=== PATIENT | female | born 1990 | race Caucasian/White ===

== ENCOUNTER 2021-04-04 02:01 | Emergency (ER) | payer BC ==
--- OUTSIDE RECORDS SUMMARY | 2021-04-04 02:07 | XMS REPORT | Continuity of Care Document ---
:1990 Author Organization [facility] t Address [address] [place] [address] Care Team Providers Name Role Phone Manjinder Lou RN Attending Clinician Unavailable AUGUSTA Attending Clinician Unavailable JEHTRO Attending Clinician Unavailable JETHRO Attending Clinician Unavailable Jethro FRIAS Attending Clinician Problems This patient has no known problems. Allergies, Adverse Reactions, Alerts Allergy Allergy Status Severity Reaction(s) Onset Inactive Treating Comm ents Source Name Type Date Date Clinician HYDROCOD DRUG Active Unknown-Cmnt 2019-0 Un etienne ONE INGREDI 4-24 ity of 00:00: [address] NICKEL DRUG Active Unknown-Cmnt 2020-0 Univ ers INGREDI 4-24 ity of 00:00: [address] NO KNOWN Drug Active Univers ALLERGIE Class ity of [facility] Medications This patient has no known medications. Procedures This patient has no known procedures. Encounters Start End Encounter Admission Attending Care Care Encounter Source Date/Time Date/Time Type Type Clinicians Facility Department ID 2019-12-12 2019-12-12 Nurse Arpita HERRING [id number] 00:00:00 00:00:00 Triage Suni rm [id number] [facility] [id number] 2019 2019 Outpatient [facility] [id number] Univers 14:20:00 14:20:00 [id number] ity [facility] 2019 2019 Outpatient ALTON BARTON [facility] [id number] Univers 14:20:00 14:20:00 ity [facility] 2019-10-31 2019-10-31 Outpatient R WILLIAM MORELOS [facility] [id number] Univers 13:00:00 13:00:00 WILLIAM MORELOS [id number] i ty of [facility] 2019-08-21 2019-08-21 Telephone Jethro [facility] [id number] 00:00:00 00:00:00 [place] [id number] Yefri [id number] [id number] [address] 2019-07-26 2019-07-26 Outpatient R WILLIAM MORELOS [facility] [id number] Univers 15:00:00 15:00:00 WILLIAM MORELOS i ty of [facility] Results This patient has no known results.
--- NOTE | 2021-04-04 02:53 | EDPHYS ---
Physician Documentation [facility] Name: Varsha Franco Age: 30 yrs Sex: Female : 1990 Arrival Date: 04/04/2021 Time: 02:11 Bed DIS4 Private MD: ED Physician Saurabh Self HPI: 04/04 02:52 This 30 yrs old Female presents to ER via Unassigned with complaints of [place] in ear, jr8 Ear Pain. 02:55 This is a 30-year-old female that presented to the emergency room with continued right jr8 ear pain. Stated that she thought the ear wick was still in there. Stated that she continues to have pain despite being on amoxicillin p.o. and eardrops. Wanted to make sure that she still did not have the ear wick in her ear.. 02:55 Associated signs and symptoms: The patient has no apparent associated signs or jr8 symptoms. Severity of symptoms: At their worst the symptoms were mild in the emergency department the symptoms are unchanged. The patient has not experienced similar symptoms in the past. The patient has been recently seen by a physician:. 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 - Social history:: Smoking status: unknown. ROS: 02:55 Constitutional: Negative for fever, chills, and weight loss. jr8 02:55 ENT: Positive for drainage from ear(s), ear pain. 02:55 All other systems are negative. Exam: 02:55 Eyes: Pupils equal round and reactive to light, extra-ocular motions intact. Lids and jr8 lashes normal. Conjunctiva and sclera are non-icteric and not injected. Cornea within normal limits. Periorbital areas with no swelling, redness, or edema. Neck: Trachea midline, no thyromegaly or masses palpated, and no cervical lymphadenopathy. Supple, full range of motion without nuchal rigidity, or vertebral point tenderness. No Meningismus. Cardiovascular: Regular rate and rhythm with a normal S1 and S2. No gallops, murmurs, or rubs. Normal PMI, no JVD. No pulse deficits. Respiratory: Lungs have equal breath sounds bilaterally, clear to auscultation and percussion. No rales, rhonchi or wheezes noted. No increased work of breathing, no retractions or nasal flaring. Skin: Warm, dry with normal turgor. Normal color with no rashes, no lesions, and no evidence of cellulitis. MS/ Extremity: Pulses equal, no cyanosis. Neurovascular intact. Full, normal range of motion. Neuro: Awake and alert, GCS 15, oriented to person, place, time, and situation. Cranial nerves II-XII grossly intact. Motor strength 5/5 in all extremities. Sensory grossly intact. 02:55 ENT: External ear(s): are unremarkable, Ear canal(s): foreign body, is not appreciated, purulent discharge, that is moderate, in the right canal, swelling, that is moderate, of the right canal, TM's: not visable, because of discharge, Swelling, Examination of the other ear shows no obvious abnormality, Nose: is normal, Mouth: is normal, Posterior pharynx: is normal. Vital Signs: 03:01 BP 137 / 94; Pulse 61; Resp 16; Temp 97.8; Pulse Ox 100% ; lt3 MDM: 02:52 Patient medically screened. [facility] 02:52 Data reviewed: vital signs, nurses notes, and as a result, I will discharge patient. [facility] Data interpreted: Pulse oximetry: on room air is 98 %. Interpretation: normal. Counseling: I had a detailed discussion with the patient and/or guardian regarding: the historical points, exam findings, and any diagnostic results supporting the discharge/admit diagnosis, the need for outpatient follow up, an ENT specialist, to return to the emergency department if symptoms worsen or persist or if there are any questions or concerns that arise at home. 02:54 ED course: Patient has continued swelling to the right external auditory canal despite jr8 being on Amoxil and drops. We will switch her to Cipro p.o. as some of this can be Pseudomonas related. Patient will continue to follow-up with otolaryngology.. Administered Medications: 03:15 Drug: Ketorolac 15 mg Route: IM; Site: right gluteus; bb 03:36 Follow up: Response: Medication administered at discharge. christine Disposition: 06:20 Co-signature as Attending Physician, Saurabh Self MD. mh7 Disposition Summary: 04/04/21 02:53 Discharge Ordered Location: Home jr8 Problem: new jr8 Symptoms: have improved jr8 Condition: Stable jr8 Diagnosis - Unspecified otitis externa, right ear jr8 Followup: jr8 - With: Private Physician - When: 2 - 3 days - Reason: Recheck today's complaints, Continuance of care, Re-evaluation by your physician Discharge Instructions: - Discharge Summary Sheet jr8 - Otitis Externa jr8 Forms: - Medication Reconciliation Form jr8 - Thank You Letter jr8 - Antibiotic Education jr8 - Prescription Opioid Use jr8 Prescriptions: - Cipro 500 mg Oral Tablet - take 1 tablet by ORAL route every 12 hours for 7 days; 14 tablet; Refills: 0, jr8 Product Selection Permitted Signatures: Patricia Lancaster RN RN Bo Nuñez PA PA 8 Saurabh Self MD MD mh7
[2021-04-04] MEDS ORDERED: KETOROLAC 30 MG/ML INJ ONE (03:08)
--- NOTE | 2021-04-04 03:38 | ER ---
Nurse's Notes [facility] Name: Varsha Franco Age: 30 yrs Sex: Female : 1990 Arrival Date: 04/04/2021 Time: 02:11 Bed DIS4 Private MD: Diagnosis: Unspecified otitis externa, right ear Presentation: 04/04 02:37 Chief complaint: Patient states: she has an ear wick in her right ear for an infection bb and it is hurting. Coronavirus screen: At this time, the client does not indicate any symptoms associated with coronavirus-19. Ebola Screen: No symptoms or risks identified at this time. Initial Sepsis Screen: Does the patient meet any 2 criteria? No. Patient's initial sepsis screen is negative. Does the patient have a suspected source of infection? No. Patient's initial sepsis screen is negative. Risk Assessment: Do you want to hurt yourself or someone else? Patient reports no desire to harm self or others. Onset of symptoms is unknown. 02:37 Method Of Arrival: Ambulatory bb 02:37 Acuity: MARCELO 5 bb Triage Assessment: 02:40 General: Appears in no apparent distress. Behavior is calm, cooperative. Pain: bb Complains of pain in right ear. EENT: Reports pain in right ear. Neuro: Level of Consciousness is awake, alert, obeys commands, Oriented to person, place, time, situation. Cardiovascular: Capillary refill < 3 seconds Patient's skin is warm and dry. Respiratory: Respiratory effort is even, unlabored, Respiratory pattern is regular. GI: No signs and/or symptoms were reported involving the gastrointestinal system. Derm: Skin is pink, warm \T\ dry. Musculoskeletal: Circulation, motion, and sensation intact. 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 - Social history:: Smoking status: unknown. Screenin:36 Abuse screen: Denies threats or abuse. Nutritional screening: No deficits noted. bb Tuberculosis screening: No symptoms or risk factors identified. Fall Risk None identified. Assessment: 03:36 Reassessment: No changes from previously documented assessment. Patient is alert, bb oriented x 3, equal unlabored respirations, skin warm/dry/pink. pt verbalized understanding of and agrees to plan of care discharge instructions given pt ambulated with steady gait to exit. Vital Signs: 03:01 BP 137 / 94; Pulse 61; Resp 16; Temp 97.8; Pulse Ox 100% ; lt3 ED Course: 02:11 Patient arrived in ED. wm 02:40 Arm band placed on Patient placed in diagnostic chair. bb 02:52 Bo Jensen PA is PHCP. jrJeyson 02:52 Saurabh Self MD is Attending Physician. jr8 03:32 Patricia Lancasetr, RN is Primary Nurse. bb 03:33 Triage completed. bb 03:36 Patient has correct armband on for positive identification. bb 03:36 No provider procedures requiring assistance completed. Patient did not have IV access bb during this emergency room visit. Administered Medications: 03:15 Drug: Ketorolac 15 mg Route: IM; Site: right gluteus; bb 03:36 Follow up: Response: Medication administered at discharge. bb Outcome: 02:53 Discharge ordered by . jr8 03:36 Discharged to home ambulatory. bb 03:36 Condition: stable 03:36 Discharge instructions given to patient, Instructed on discharge instructions, follow up and referral plans. medication usage, Demonstrated understanding of instructions, follow-up care, medications, Prescriptions given X 1. 03:38 Patient left the ED. bb Signatures: Patricia Lancaster, RN RN bb Bo Jensen PA PA jrAyanna Chapman Gillespie, Laura lt3
[2021-04-04 03:45] VITALS: BP 137/94; TEMP 97.8; O2SAT 100
== END 2021-04-04 03:38 | disposition home or self-care (01) ==
LOC: ER 02:01
DX: H60.91 Unspecified otitis externa, right ear (principal); F41.9 Anxiety disorder, unspecified; F90.9 Attention-deficit hyperactivity disorder, unspecified type
CPT/HCPCS: 96372; 99283

== ENCOUNTER 2022-03-01 23:01 | Emergency (ER) | payer BC, SELFPAY ==
--- OUTSIDE RECORDS SUMMARY | 2022-03-01 23:04 | XMS REPORT | Continuity of Care Document ---
:1990 Author Organization [facility] t Address [address] [place] [address] Care Team Providers Name Role Phone Pcp, Patient Does Not Have A Primary Care Physician +[id number] Andrew Nye NP Attending Clinician ANDREW NYE Attending Clinician Unavailable ANTOINE HUERTA Attending Clinician Unavailable Doctor Unassigned, [place] Attending Clinician Unavailable Suni Lou RN Attending Clinician Unavailable ALTON DERAS Attending Clinician Unavailable Willow Morelos DO Attending Clinician WILLOW MORELOS Attending Clinician Unavailable WILLOW MORELOS Attending Clinician Unavailable Problems Condition Condition Condition Status Onset Resolution Last Treating Co mments Source Name Details Category Date Date Treatment Clinician Date Adult ADHD Adult ADHD Disease Active 2021-04 U nivers 08 ity of 00:00: [place] 00 Medical Branch Oral Oral Disease Active 2021-04 [facility] it y of ion ion 00:00: [place] initiation initiation 00 [place] dical Branch History of History of Disease Active 2021-04 U nivers anxiety anxiety 08 ity of 00:00: [place] 00 Medical [place] No known No known Disease Unive rs active active ity of problems problems [facility] Allergies, Adverse Reactions, Alerts Allergy Allergy Status Severity Reaction(s) Onset Inactive Treating Comm ents Source Name Type Date Date Clinician Hydrocod Propensi Active Unknown - Uni vers one ty to See comments 4-24 ity of adverse 00:00: [place] reaction 00 [facility] s [place] Nickel Propensi Active Unknown - 0 Unive rs ty to See comments 4-24 ity of adverse 00:00: [place] reaction 00 Medical s Branch HYDROCOD DRUG Active Unknown-Cmnt 2019-0 Un etienne ONE INGREDI - ity of 00:00: Medical Branch NICKEL DRUG Active Unknown-Cmnt 2019-0 Univ ers INGREDI 07-25 ity of 00:00: [place] [facility] NO KNOWN Drug Active Univers ALLERGIE Class ity of S [facility] Social History Social Habit Start Date Stop Date Quantity Comments Source History of Cigarette Smoker Universi ty of tobacco use [facility] Exposure to 2022-01-29 2022-02-08 Not sure [facility] SARS-CoV-2 00:00:00 10:55:00 [facility] (event) [place] Tobacco use and 2022-02-08 2022-02-08 Smokeless tobacco Un iversity of exposure 00:00:00 00:00:00 non-user [facility] Alcohol intake 2022-02-08 2022-02-08 Ex-drinker [facility] 00:00:00 00:00:00 (finding) [facility] Sex Ass[birth year] Universit y of 00:00:00 00:00:00 [facility] Smoking Status Start Date Stop Date Source Ex-smoker 2022-02-08 00:00:00 2022-02-08 00:00:00 [facility] of [facility] Medications Ordered Filled Start Stop Current Ordering Indication Dosage Frequency Signature Comments Components Source Medication Medication Date Date Medication? Clinician (SIG) Name Name norgestimat 2021-04 Yes [id number] 1{tbl} Take 1 Univers e-ethinyl 1-08 tablet by ity o f estradioL [place] 0.[place]0.215[place] 00 the Medical 0.25 mg-25 morning. Branc h mcg tablet norgestimat 2021-04 Yes [id number] 1{tbl} Take 1 Univers e-ethinyl 1-08 tablet by ity o f estradioL [place] 0.18/0.215/ 00 the Medical 0.25 mg-25 morning. Branc h mcg tablet norgestimat 2021-04 Yes [id number] 1{tbl} Take 1 Univers e-ethinyl 1-08 tablet by ity o f estradioL 00:[place] 0.18/0.215/ 00 the Medical 0.25 mg-25 morning. Branc h mcg tablet dextroamphe 2021-04 Yes TAKE [facility] tamine-amph 0-01 ONE-HALF ity of etamine 30 00:00: (04/04) [place] mg tablet 00 TABLET(S) Medic al BY MOUTH Branch TWICE A DAY. TAKE 2ND DOSE AT NOON. dextroamphe 2021-04 Yes TAKE [facility] tamine-amph 0-01 ONE-HALF ity of etamine 30 00:00: (04/04) [place] mg tablet 00 TABLET(S) Medic al BY MOUTH Branch TWICE A DAY. TAKE 2ND DOSE AT NOON. dextroamphe 2021-04 Yes TAKE [facility] tamine-amph 0-01 ONE-HALF ity of etamine 30 00:00: (04/04) [place] mg tablet 00 TABLET(S) Medic al BY MOUTH Branch TWICE A DAY. TAKE 2ND DOSE AT NOON. budesonide- Yes INHALE TWO Univers formoteroL 9-23 (2) PUFFS ity of 160-4.5 00:00: BY MOUTH [place] mcg/actuati 00 DAILY. Medica l on inhaler Branch budesonide- Yes INHALE TWO Univers formoteroL 9-23 (2) PUFFS ity of 160-4.5 00:00: BY MOUTH [place] mcg/actuati 00 DAILY. Medica l on inhaler Branch budesonide- Yes INHALE TWO Univers formoteroL 9-23 (2) PUFFS ity of 160-4.5 00:00: BY MOUTH [place] mcg/actuati 00 DAILY. Medica l on inhaler Branch ALPRAZolam Yes TAKE ONE Uni vers 0.25 mg 9-22 (1) ity of tablet 00:00: TABLET(S) [place] 00 BY MOUTH Medical TWICE A Branch DAY NEEDED. ARIPiprazol Yes 2mg Take 2 mg U nivers e 2 mg 9-22 by mouth ity of tablet 00:00: in the morning. Medical Branch ALPRAZolam Yes TAKE ONE Uni vers 0.25 mg 9-22 (1) ity of tablet 00:00: TABLET(S) [place] 00 BY MOUTH Medical TWICE A Branch DAY NEEDED. ARIPiprazol 2021-0 Yes 2mg Take 2 mg U nivers e 2 mg 9-22 by mouth ity of tablet 00:00: in the [place] morning. Medical Branch ALPRAZolam Yes TAKE ONE Uni vers 0.25 mg 9-22 (1) ity of tablet 00:00: TABLET(S) [place] BY MOUTH Medical TWICE A Branch DAY NEEDED. ARIPiprazol 2021-0 Yes 2mg Take 2 mg U nivers e 2 mg 9-22 by mouth ity of tablet 00:00: in the [place] morning. Medical Branch tiotropium 2019-0 Yes [id number] 18ug Inhale 1 Univers 18 mcg 8-26 capsule ity of inhalation 00:00: daily. [place] [facility] levalbutero 2019-0 Yes [id number] 2{puff} Inhale 2 Univers l 45 8-26 Puffs ity of mcg/actuati 00:00: every 6 [place] as on inhaler 00 (six) Medical hours as Branch needed for Wheezing. fluticasone 2019-0 Yes [id number] 1{puff} Inhale 1 Univers propionate 8-26 Puff every ity of 110 00:00: 12 [place] mcg/actuati 00 (twelve) Medi kelly on inhaler hours. Branch tiotropium 2019-0 Yes [id number] 18ug Inhale 1 Univers 18 mcg 8-26 capsule ity of inhalation 00:00: daily. [place] [address] Medical Branch levalbutero 2019-0 Yes [id number] 2{puff} Inhale 2 Univers l 45 8-26 Puffs ity of mcg/actuati 00:00: every 6 [place] as on inhaler 00 (six) Medical hours as Branch needed for Wheezing. fluticasone 2020-0 Yes [id number] 1{puff} Inhale 1 Univers propionate 8-26 Puff every ity of 110 00:00: 12 [place] mcg/actuati 00 (twelve) Medi kelly on inhaler hours. Branch tiotropium 2019-0 Yes [id number] 18ug Inhale 1 Univers 18 mcg 8-26 capsule ity of inhalation 00:00: daily. [place] [address] Medical Branch levalbutero 2019-0 Yes [id number] 2{puff} Inhale 2 Univers l 45 8-26 Puffs ity of mcg/actuati 00:00: every 6 [place] as on inhaler 00 (six) Medical hours as Branch needed for Wheezing. fluticasone 2019-0 Yes [id number] 1{puff} Inhale 1 Univers propionate 8-26 Puff every ity of 110 00:00: 12 [place] mcg/actuati 00 (twelve) Medi kelly on inhaler hours. Branch tiotropium Yes [id number] 18ug Inhale 1 Univers 18 mcg 8-26 capsule ity of inhalation 00:00: daily. [address] levalbutero 0 Yes [id number] 2{puff} Inhale 2 Univers l 45 8-26 Puffs ity of mcg/actuati 00:00: every 6 [place] as on inhaler 00 (six) Medical hours as Branch needed for Wheezing. fluticasone Yes [id number] 1{puff} Inhale 1 Univers propionate 8-26 Puff every ity of 110 00:00: 12 [place] mcg/actuati 00 (twelve) Medi kelly on inhaler hours. Branch Vital Signs Vital Name Observation Time Observation Value Comments Source Systolic blood 2022-02-08 17:24:00 137 mm[Hg] [facility] Diastolic blood 2022-02-08 17:24:00 85 mm[Hg] [facility] Heart rate 2022-02-08 17:24:00 82 /min [facility] Body temperature 2022-02-08 17:24:00 36.67 Nathaly [facility] Respiratory rate 2022-02-08 17:24:00 18 /min [facility] Body height 2022-02-08 17:24:00 156.2 cm [facility] Body weight 2022-02-08 17:24:00 53.071 kg [facility] BMI 2022-02-08 17:24:00 21.75 kg/m2 [facility] Procedures Procedure Date / Time Performed Performing Clinician Sourrenee e POCT TEST 2022-02-08 00:00:00 Hazel Welch [facility] CONSENT/REFUSAL FOR 2021-10-25 21:29:14 Doctor Unassigned, No Un [facility] DIAGNOSIS AND Name [facility] TREATMENT Encounters Start End Encounter Admission Attending Care Care Encounter Source Date/Time Date/Time Type Type Clinicians Facility Department ID 2022-02-21 2022-02-21 Telephone Prashanth WYDIONNE JEFFERSON [id number] Univers 00:00:00 00:00:00 Christieyajaira CIHNA [id number] it y of WOMEN'S [id number] [facility] [place] [facility] [id number] [address] 2022-02-08 2022-02-08 Outpatient R ANDREW NYE [facility] B [id number] Univers 11:00:00 11:52:[address] [facility] 2022-02-08 2022-02-08 [facility] [id number] Univers 11:00:00 11:52:49 Visit Andrew ATKINSON [id number] it y of WOMEN'S [id number] [facility] [place] [facility] [id number] [address] 2021-10-25 2021-10-25 Outpatient R BRADLEY [facility] [id number] Univers 16:40:00 16:40:00 ANTOINE waiet o f [facility] 2021-10-25 2021-10-25 Orders Doctor NEVAEH [id number] Univers 00:00:00 00:00:00 Only UnassSUSHILA arndt [id number] ity of [place] [facility] [id number] [place] as [id number] [place] [address] Branch 2019-12-12 2019-12-12 Nurse Arpita HERRING [id number] 00:00:00 00:00:00 Triage dSuni [id number] HOSPITAL [id number] 2019 2019 Outpatient R ALTON DERAS [facility] [id number] Univers 14:20:00 14:20:[address] [facility] 2019-08-21 2019-08-21 Telephone Sushil [facility] [id number] 00:00:00 00:00:00 Willow Glover [id number] Yefri [id number] Edward [id number] replaced by [facility] anson5 [facility] 2019-07-26 2019-07-26 Outpatient R WILLOW MORELOS [facility] [id number] [facility] 15:00:00 15:00:00 WILLOW MORELOS i [facility] Results Test Description Test Time Test Comments Results Result Comments Source POCT TEST 2022-02-08 18:41:00 Test Item Value Reference Range Interpretation Comme nts POCT PREG (test code = 1605) Negative On board controls acceptable with C Line (test code = 3574) Yes POCT PREG LOT # (test code = 3575) POCT PREG TEST DATE (test code = 3576) [id number] 18:41:00 Test Item Value Reference Range Interpretation Comments POCT PREG (test code = 1605) Negative On board controls acceptable with C Yes Line (test code = 3574) POCT PREG LOT # (test code = 3575) POCT PREG TEST DATE (test code = 3576) [facility]
--- NOTE | 2022-03-01 23:30 | ER ---
Nurse's Notes [facility] Name: Varsha Franco Age: 31 yrs Sex: Female : 1990 Arrival Date: 03/01/2022 Time: 23:06 Bed IW1 Private MD: Diagnosis: Encounter for examination and observation for unspecified reason Presentation: 03/01 23:13 Chief complaint: Patient states: "I had to Adderall this morning. I had a couple of tw5 beers at the bar and a vodka soda. I head a headache so I got home and took a tramadol rather than a Tylenol. I goggled if that was okay with drinking and I saw that it could cause , so I was worried.". Coronavirus screen: Vaccine status: Patient reports receiving the 2nd dose of the covid vaccine. [employer]. Ebola Screen: Patient negative for fever greater than or equal to 101.5 degrees Fahrenheit, and additional compatible Ebola Virus Disease symptoms Patient denies exposure to infectious person. Patient denies travel to an Ebola-affected area in the 21 days before illness onset. Initial Sepsis Screen: Does the patient meet any 2 criteria? No. Patient's initial sepsis screen is negative. Does the patient have a suspected source of infection? No. Patient's initial sepsis screen is negative. Initial Sepsis Screen: Does the patient meet any 2 criteria?. Risk Assessment: Do you want to hurt yourself or someone else? Patient reports no desire to harm self or others. Onset of symptoms was March 01, 2022. 23:13 Method Of Arrival: Ambulatory tw5 23:13 Acuity: MARCELO 5 tw5 Triage Assessment: 23:18 General: Appears in no apparent distress. Behavior is anxious. Pain: Denies pain. 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 - Social history:: Smoking status: Reported history of juuling and/or vaping. Screenin:33 Abuse screen: Denies threats or abuse. Denies injuries from another. Nutritional tw5 screening: No deficits noted. Tuberculosis screening: No symptoms or risk factors identified. Fall Risk None identified. Assessment: 23:33 Cardiovascular: No deficits noted. tw5 Vital Signs: 23:13 BP 117 / 83; Pulse 71; Resp 18; Temp 98.7; Pulse Ox 97% ; Weight 52.16 kg; Height 5 ft. tw5 2 in. (157.48 cm); Pain 0/10; 23:13 Body Mass Index 21.03 (52.16 kg, 157.48 cm) tw5 ED Course: 23:06 Patient arrived in ED. ja2 23:11 Ney Santana PA is PHCP. cp 23:11 Ney Joe MD is Attending Physician. cp 23:18 Triage completed. tw5 23:18 Arm band placed on. tw5 23:33 No apparent distress. tw5 23:33 Patient has correct armband on for positive identification. tw5 23:33 No provider procedures requiring assistance completed. Patient did not have IV access tw5 during this emergency room visit. Administered Medications: No medications were administered Medication: 23:33 VIS not applicable for this client. tw5 Outcome: 23:29 Discharge ordered by . cp 23:33 Discharged to home ambulatory. tw5 23:33 Condition: good 23:33 Discharge instructions given to patient, Instructed on discharge instructions, follow up and referral plans. Demonstrated understanding of instructions, follow-up care. 23:33 Patient left the ED. tw5 Signatures: Ney Santana PA PA cp Alexander, Jessica ja2 Wood, Tiffany tw5
--- NOTE | 2022-03-01 23:30 | EDPHYS ---
Physician Documentation [facility] Name: Varsha Franco Age: 31 yrs Sex: Female : 1990 Arrival Date: 03/01/2022 Time: 23:06 Bed IW1 Private MD: ED Physician Ney Joe HPI: 03/01 23:24 This 31 yrs old Female presents to ER via Ambulatory with complaints of Breathing cp Difficulty, Dizziness, Headache. 23:24 The patient has shortness of breath at rest. Onset: The symptoms/episode began/occurred cp today. Associated signs and symptoms: Pertinent positives: dizziness, headache, Pertinent negatives: chest pain. Severity of symptoms: in the emergency department the symptoms are unchanged despite home interventions. Patient reports she was out with friend drinking earlier today and went home to go to sleep. Woke up this evening with a headache so she took 1 tramadol tablet for pain. 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 - Social history:: Smoking status: Reported history of juuling and/or vaping. ROS: 23:26 Constitutional: Negative for body aches, chills, fever, poor PO intake. cp 23:26 Cardiovascular: Negative for chest pain, edema, palpitations. 23:26 Respiratory: Positive for shortness of breath, at rest. Negative for cough, wheezing. 23:26 Abdomen/GI: Negative for abdominal pain, vomiting, diarrhea, constipation. 23:26 Neuro: Positive for headache, Negative for altered mental status, dizziness, syncope, weakness. 23:26 All other systems are negative. Exam: 23:26 Head/Face: Normocephalic, atraumatic. cp 23:26 Constitutional: The patient appears in no acute distress, alert, awake, non-diaphoretic, non-toxic, well developed, well nourished. 23:26 Eyes: Periorbital structures: appear normal, Conjunctiva: normal, no exudate, no injection, Sclera: no appreciated abnormality, Lids and lashes: appear normal, bilaterally. 23:26 ENT: External ear(s): are unremarkable, Nose: is normal, Mouth: Lips: moist, Oral mucosa: pink and intact, moist, Posterior pharynx: Airway: no evidence of obstruction, patent. 23:26 Chest/axilla: Inspection: normal. 23:26 Cardiovascular: Rate: normal, Rhythm: regular. 23:26 Respiratory: the patient does not display signs of respiratory distress, Respirations: normal, no use of accessory muscles, no retractions, labored breathing, is not present, Breath sounds: are clear throughout, no decreased breath sounds, no stridor, no wheezing. 23:26 Abdomen/GI: Exam negative for discomfort, distension, guarding, Inspection: abdomen appears normal. 23:26 Neuro: Orientation: to person, place \T\ time. Mentation: is normal, Motor: moves all fours, strength is normal. 23:26 Psych: Behavior/mood is cooperative, anxious, Affect is animated, Delusions/hallucinations are not present. Vital Signs: 23:13 BP 117 / 83; Pulse 71; Resp 18; Temp 98.7; Pulse Ox 97% ; Weight 52.16 kg; Height 5 ft. tw5 2 in. (157.48 cm); Pain 0/10; 23:13 Body Mass Index 21.03 (52.16 kg, 157.48 cm) tw5 MDM: 23:26 Patient medically screened. [facility] 23:29 Data reviewed: vital signs, nurses notes. cp 23:29 Differential diagnosis: Anxiety Reaction drug overdose. Counseling: I had a detailed cp discussion with the patient and/or guardian regarding: the historical points, exam findings, and any diagnostic results supporting the discharge/admit diagnosis, to return to the emergency department if symptoms worsen or persist or if there are any questions or concerns that arise at home. ED course: VSS. Patient declined any testing at this time and was informed she may return to ED at any time for evaluation. Administered Medications: No medications were administered Disposition Summary: 03/01/22 23:29 Discharge Ordered Location: Home cp Problem: new cp Symptoms: are unchanged cp Condition: Stable cp Diagnosis - Encounter for examination and observation for unspecified reason cp Followup: cp - With: Emergency Department - When: As needed - Reason: Worsening of condition Discharge Instructions: - Discharge Summary Sheet cp Forms: - Medication Reconciliation Form cp - Thank You Letter cp - Antibiotic Education cp - Prescription Opioid Use cp Addendum: 03/06/2022 07:50 Co-signature as Attending Physician, Ney Joe MD I agree with the assessment and c rodriguez plan of care. Signatures: Ney Joe MD MD cha Page, Corey, PA PA cp Wood, Tiffany tw5
[2022-03-01 23:38] VITALS: BP 117/83; TEMP 98.7; O2SAT 97
== END 2022-03-01 23:33 | disposition home or self-care (01) ==
LOC: ER 23:01
DX: R42 Dizziness and giddiness (principal); R51.9 Headache, unspecified; Z88.5 Allergy status to narcotic agent
CPT/HCPCS: 99281